=== PATIENT | female | born 1935 | race Caucasian/White ===

== ENCOUNTER 2017-05-12 14:00 | Emergency (ER) | payer MEDICARE ==
[2017-05-12 15:16] LABS: #Lymphocytes 0.9 thou/uL (1.20-3.40); #Monocytes 0.4 thou/uL (0.11-0.59); #Neutrophils 2.9 thou/uL (1.40-6.50); %Basophils 0.4 % (0.0-1.0); %Eosinophils 0.2 % (0.0-10.0); %Lymphocytes 21.1 % (21.0-51.0); %Monocytes 9.2 % (0.0-10.0); %Neutrophils 69.1 % (42.0-75.0); Hemoglobin 12.5 g/dL (12.0-16.0); Mean Corpuscular HGB CONC 34.8 g/dL (32.0-36.0); Mean Corpuscular Hemoglobin 30.3 pg (27.0-31.0); Mean Corpuscular Volume 87.1 fl (81.0-99.0); Mean Platelet Volume 7.9 fL (7.4-10.4); Platelet Count 183 thou/uL (130-400); RBC Distribution Width 11.1 % (11.5-14.5); Red Blood Cell (RBC) Count 4.14 mill/uL (4.20-5.40); White Blood Cell (WBC) Count 4.2 thou/uL (4.8-10.8)
[2017-05-12 15:27] LABS: ALT (SGPT) 14 U/L (8-55); AST (SGOT) 28 U/L (5-34); Albumin 3.5 g/dL (3.4-4.8); Alkaline Phosphatase 42 U/L (40-150); Anion Gap 15 mmol/L (10-20); BUN (Urea Nitrogen) 14 mg/dL (9.8-20.1); Bilirubin, Total 0.5 mg/dL (0.2-1.2); Calc. Creatinine Clearance 0 mL/min (70-130); Calcium 8.4 mg/dL (7.8-10.44); Carbon Dioxide 30 mmol/L (23-31); Chloride 86 mmol/L (98-107); Estimated GFR-MDRD 71; Globulin 2.6 g/dL (2.4-3.5); Glucose 90 mg/dL (83-110); Potassium 3.4 mmol/L (3.5-5.1); Protein, Total 6.1 g/dL (6.0-8.3); Sodium 128 mmol/L (136-145)
[2017-05-12 15:31] LABS: CKMB 2.8 ng/mL (0-6.6); Troponin I 0.014 ng/mL (< 0.028)
--- NOTE | 2017-05-12 15:43 | RAD ---
UPRIGHT PORTABLE CHEST 1 VIEW: Date: 05/12/17 HISTORY: 82-year-old female with chest pain, weakness, body aches. COMPARISON: 05/20/11. FINDINGS: Heart size is within normal limits. Minimal increased linear and interstitial markings which appear s table. No confluent pneumonia, overt edema, or pleural effusion. Atherosclerosis of aorta with ectasi a. IMPRESSION: Minimal stable chronic changes. Atherosclerosis of aorta. POS: C
[2017-05-12 16:05] LABS: Bilirubin Negative (Negative); Blood, Urine Trace (Negative); Clarity Hazy (Clear); Glucose, Urine (Dipstick) Negative (Negative); Leukocyte Small (Negative); Nitrite Negative (Negative); Protein, Urine (Dipstick) Negative (Neg-Trace)
[2017-05-12 16:12] LABS: Bacteria/HPF 2+ HPF (None Seen)
[2017-05-12 16:19] LABS: RBC/HPF 0-3 HPF (0-3)
== END 2017-05-12 17:16 | disposition home or self-care (01) ==
LOC: SCSER 14:00
DX: E87.1 Hypo-osmolality and hyponatremia (principal); E86.0 Dehydration; E03.9 Hypothyroidism, unspecified; I10 Essential (primary) hypertension; F17.210 Nicotine dependence, cigarettes, uncomplicated; Z71.6 Tobacco abuse counseling; Z79.899 Other long term (current) drug therapy
CPT/HCPCS: 71045; 80053; 81003; 81015; 82553; 84484; 85025; 86140; 93005; 99406

== ENCOUNTER 2018-05-08 11:08 | Day surgery (SDC) | payer MEDICARE ==
[~2018-05-08 11:08] MED LIST: PHENYLEPHRINE HCL 2.5% EA EYE SCH
[2018-05-08] MEDS ORDERED: Phenylephrine 2.5% Ophth Soln 5 ML BOT ONE (11:26)
== END 2018-05-08 12:42 | disposition home or self-care (01) ==
LOC: SDC 11:08
PROVIDERS: ATTEND Ophthalmology
PROC: 085K3ZZ Destruction of Left Lens, Percutaneous Approach (ICD-10-PCS; principal; 2018-05-08)
PROC: 085J3ZZ Destruction of Right Lens, Percutaneous Approach (ICD-10-PCS; 2018-05-08)
DX: H26.493 Other secondary cataract, bilateral (principal)

== ENCOUNTER 2018-07-19 14:25 | Inpatient (IN) | payer MEDICARE ==
[2018-07-19] MEDS ORDERED: Ondansetron PF 4 MG/2 ML Vial ONE (14:56)
[2018-07-19 15:08] LABS: #Basophils 0.1 thou/uL (0.0-0.2); #Lymphocytes 1.1 thou/uL (1.20-3.40); #Monocytes 0.7 thou/uL (0.11-0.59); #Neutrophils 11.8 thou/uL (1.40-6.50); %Basophils 0.5 % (0.0-1.0); %Eosinophils 0.1 % (0.0-10.0); %Neutrophils 86.4 % (42.0-75.0); Mean Corpuscular HGB CONC 32.8 g/dL (32.0-36.0); Mean Corpuscular Hemoglobin 30.6 pg (27.0-31.0); Mean Corpuscular Volume 93.2 fL (78.0-98.0); Mean Platelet Volume 9.3 fL (7.4-10.4); Platelet Count 228 thou/uL (130-400); RBC Distribution Width 12.3 % (11.5-14.5); Red Blood Cell (RBC) Count 4.91 mill/uL (4.20-5.40); White Blood Cell (WBC) Count 13.7 thou/uL (4.8-10.8)
[2018-07-19 15:45] LABS: ALT (SGPT) 11 U/L (8-55); AST (SGOT) 17 U/L (5-34); Albumin 3.8 g/dL (3.4-4.8); Alkaline Phosphatase 38 U/L (40-150); Anion Gap 15 mmol/L (10-20); BUN (Urea Nitrogen) 24 mg/dL (9.8-20.1); Bilirubin, Total 1.4 mg/dL (0.2-1.2); Calc. Creatinine Clearance 0 mL/min (70-130); Calcium 9.1 mg/dL (7.8-10.44); Carbon Dioxide 26 mmol/L (23-31); Chloride 98 mmol/L (98-107); Estimated GFR-MDRD 55; Globulin 2.8 g/dL (2.4-3.5); Glucose 108 mg/dL (83-110); Lipase 5 U/L (8-78); Potassium 4.1 mmol/L (3.5-5.1); Protein, Total 6.6 g/dL (6.0-8.3); Sodium 135 mmol/L (136-145)
[2018-07-19] MEDS ORDERED: ePHEDrine 50 MG/ML VIAL ONE (16:31)
[2018-07-19] MEDS ORDERED: Rocuronium Bromide 10 MG/ML (10ML VIAL) ONE (16:31)
[2018-07-19] MEDS ORDERED: PHENYLEPHRINE-NS 100 MCG/ML 10 ML SYRINGE ONE (16:31)
[2018-07-19] MEDS ORDERED: Succinylcholine Chloride 20 MG/ML 10 ml SYRINGE FS ONE (16:31)
[2018-07-19] MEDS ORDERED: Lidocaine 1% PF 5 ML VIAL ONE (16:31)
[2018-07-19] MEDS ORDERED: Glycopyrrolate 0.2 MG/ML 5 ML SYRINGE ONE (16:31)
[2018-07-19] MEDS ORDERED: PROPOFOL 200 MG/20 ML VIAL ONE (16:31)
[2018-07-19] MEDS ORDERED: Lidocaine Viscous Sol 2% 15 ml UD Cup ONE (16:58)
--- NOTE | 2018-07-19 17:03 | CT ---
CT ABDOMEN AND PELVIS WITH IV AND ORAL CONTRAST: HISTORY: Abdominal discomfort, pain, and nausea. Constipation. FINDINGS: The lung bases are clear. The spleen, pancreas, and adrenal glands are normal. There are small cyst s in the kidneys. There are small, low density lesions in the liver, too small to characterize. No calcified gallstones are seen. There is a large amount of free fluid in the abdomen and pelvis, cons istent with ascites. Neurovascular calcifications without evidence of aneurysmal dilatation of the a bdominal aorta. There are degenerative changes in the spine. There is dilatation of the small bowel loops with suggestion of a transition zone in the distal ileum . A dilated loop of small bowel without intraluminal contrast demonstrates marked wall thickening an d mucosal enhancement in the lower abdomen. There is sigmoid diverticulosis. There are degenerative changes in the spine. IMPRESSION: 1. Ascites. 2. Small bowel obstruction. 3. Small bowel wall thickening and mucosal enhancement. The possibility of ischemic bowel cannot be excluded. 4. Left inguinal hernia, containing ascites. Discussed over the telephone with the ER physician, Dr. Issa Bella, at 4:47 p.m. CODE CR POS: CARLA
[2018-07-19] MEDS ORDERED: Piperacillin/Tazobactam 4.5 GM VIAL ONE (17:16)
--- NOTE | 2018-07-19 18:19 | RAD ---
Exam: Chest one view portable: HISTORY: NG tube placement confirmation An NG tube extends into the stomach. Increased linear and interstitial changes are noted bilaterally, stable. IMPRESSION: NG tube in place with the tip in the stomach. Stable chronic interstitial and linear changes. Atheros clerosis of the aorta.
[2018-07-19 19:23] VITALS: BMI 18.3
[2018-07-19] MEDS ORDERED: Bupivacaine HCl 0.5%/Epinephrine 1:200,000/PF 30 ml Vial ONE (19:28)
[2018-07-19] MEDS ORDERED: Meropenem 2 GM in Sodium Chloride 0.9% 100 ML IVPB SCH (19:30)
[2018-07-19] MEDS ORDERED: Fentanyl 100 MCG/2 ML VIAL ONE (19:35)
--- NOTE | 2018-07-19 20:07 | HP ---
HISTORY OF PRESENT ILLNESS: Leonila Hutson is an 83-year-old female, who lives in [place], [place]. She lives alone. She functions independently, drives, ambulates without problems. Her nephew is with her. She is retired. She had a hysterectomy many years ago with unilateral salpingo-oophorectomy. She began having abdominal pain three days ago who developed nausea and vomiting 2 days ago and has been obstipated for 3 days. She took an enema with minimal results. Continues to have pain. She was seen in the emergency room and noted to have normal basic metabolic profile, but a lactate of 2.4. White count 13, hemoglobin 15. CAT scan of the abdomen and pelvis obtained for abdominal pain, nausea, vomiting, obstipation, revealed changes consistent with bowel obstruction with ascites, transition zone in the distal ileum consistent with past hysterectomy. There are some mucosal changes and wall thickening of the small bowel suggestive of ischemia. She is noted to have a left inguinal hernia with ascites and high lactate and her pain and tenderness, would recommend laparoscopy, possible laparotomy. I have explained to the patient and the patient's nephew. They consent and will proceed. ALLERGIES: NONE. SOCIAL HISTORY: Tobacco, one pack per day. Alcohol, occasional beer. MEDICATIONS: Synthroid 50 mcg a day. PAST SURGICAL HISTORY: Hysterectomy, unilateral salpingo-oophorectomy, tonsillectomy, never has had colonoscopy. REVIEW OF SYSTEMS: Ten-point noncontributory nor cardiac symptomatology. No cardiac workup. No cardiac catheterizations in the past. No stress test recalled. PAST MEDICAL HISTORY: Hypothyroidism, otherwise noncontributory. FAMILY HISTORY: Noncontributory. PHYSICAL EXAMINATION: VITAL SIGNS: Temperature 98.8, heart rate 91, respiratory rate 18, blood pressure 146/87, height 5 foot 2, weight 100 pounds, BMI 18. HEAD, EARS, EYES, NOSE AND THROAT: Unremarkable. LUNGS: Clear to auscultation. CARDIAC: Regular rate and rhythm without murmur or gallop. ABDOMEN: Soft, tenderness, diffuse guarding, significantly tympanitic, increased bowel sounds. EXTREMITIES: No ankle edema. LABORATORY DATA: As noted above. ASSESSMENT/PLAN: Small bowel obstruction with significant pain and tenderness and ascites and elevated lactate level, two days of obstipation. We would recommend laparoscopy, possible laparotomy. Risks and benefits of the operation discussed. She consents. We will proceed emergently this evening. Job ID: [id number]
[2018-07-19] MEDS ORDERED: SUGAMMADEX SODIUM 200 MG/2 ML VIAL ONE (20:51)
[2018-07-19] MEDS ORDERED: Morphine 4 MG/ML VIAL SLOW IVP PRN (21:04)
[2018-07-19] MEDS ORDERED: Morphine 2 MG/ML SYRINGE SLOW IVP PRN (21:04)
[2018-07-19] MEDS ORDERED: Ondansetron ODT 4 MG TAB PO PRN ×2 (21:09)
[2018-07-19] MEDS ORDERED: Ondansetron ODT 8 MG TAB PO PRN ×2 (21:09)
[2018-07-19] MEDS ORDERED: Ondansetron HCl/PF 4 MG/2 ML Vial IVP PRN (21:15)
[2018-07-19] MEDS ORDERED: Promethazine HCl 25 MG/ML VIAL IM PRN (21:15)
[2018-07-19] MEDS ORDERED: Promethazine HCl 25 MG/ML VIAL SLOW IVP PRN (21:15)
[2018-07-19] MEDS ORDERED: Scopolamine 1.5 mg/72 hour Patch TD SCH (22:00)
[2018-07-19] MEDS: Lactated Ringer's 1,000 ML IV SCH (22:41)
[2018-07-20] MEDS: Ketorolac Tromethamine 30 MG/ML VIAL IVP SCH ×4 (00:10→18:31)
[2018-07-20] MEDS: Acetaminophen 1,000 MG in Premix Bag 1 BAG IVPB SCH ×2 (00:11→05:57)
--- NOTE | 2018-07-20 03:58 | OP ---
DATE OF PROCEDURE: 07/19/2018 PREOPERATIVE DIAGNOSIS: Small-bowel obstruction, suspect ischemic bowel. POSTOPERATIVE DIAGNOSIS: Small-bowel obstruction, suspect ischemic bowel due to adhesions from hysterectomy. PROCEDURE PERFORMED: Laparoscopic adhesiolysis. ANESTHESIA: General, local 0.5% Marcaine with epinephrine 30 mL. DESCRIPTION OF PROCEDURE: The patient was taken to the operating room. Under general anesthesia, Waggoner catheter placed and left at the end of the procedure overnight. The patient's abdomen prepared with ChloraPrep and draped in routine fashion. Left lateral subcostal incision made, pneumoperitoneum to 15 mmHg obtained with a Veress needle, replaced with a 5-port video laparoscope inserted. Left lateral mid abdominal incision made and a 5-port placed and the left lower quadrant lateral incision made and another 5-port placed, all under laparoscopic visualization. There was no omental adhesions to the anterior abdominal wall inferiorly, taken down with the LigaSure. This omentum was reflected cephalad. There was bloody tinged ascites and abdominal cavity evacuated with suction. There was an adhesive band between the omentum bridging to the mesentery obstructing the segment of ileum. This was carefully evaluated laparoscopically, identified, divided with LigaSure, releasing the obstruction. There was a segment of ileum about 10 inches that was hyperemic but not gangrenous. Once the adhesion was released, this began to pink up and then appeared to be improved. The mesentery was slightly hemorrhagic, but the bowel was viable and did not require resection. Pneumoperitoneum irrigant evacuated and all this was removed, and all skin incisions were approximated with interrupted subdermal 4-0 Monocryl and [place] glue applied. Job ID: [id number]
[2018-07-20 05:05] LABS: #Lymphocytes 1.6 thou/uL (1.20-3.40); #Monocytes 0.8 thou/uL (0.11-0.59); #Neutrophils 9.9 thou/uL (1.40-6.50); %Eosinophils 0.4 % (0.0-10.0); %Lymphocytes 12.8 % (21.0-51.0); %Monocytes 6.2 % (0.0-10.0); %Neutrophils 80.6 % (42.0-75.0); Hemoglobin 12.1 g/dL (12.0-16.0); Mean Corpuscular HGB CONC 33.5 g/dL (32.0-36.0); Mean Corpuscular Hemoglobin 32.4 pg (27.0-31.0); Mean Corpuscular Volume 96.7 fL (78.0-98.0); Mean Platelet Volume 8.6 fL (7.4-10.4); Platelet Count 234 thou/uL (130-400); Red Blood Cell (RBC) Count 3.75 mill/uL (4.20-5.40); White Blood Cell (WBC) Count 12.3 thou/uL (4.8-10.8)
[2018-07-20 05:08] LABS: Anion Gap 11 mmol/L (10-20); BUN (Urea Nitrogen) 19 mg/dL (9.8-20.1); Calc. Creatinine Clearance 36 mL/min (70-130); Carbon Dioxide 25 mmol/L (23-31); Chloride 100 mmol/L (98-107); Estimated GFR-MDRD 65; Potassium 4.3 mmol/L (3.5-5.1); Sodium 132 mmol/L (136-145)
[2018-07-20 05:09] LABS: Calcium 8.3 mg/dL (7.8-10.44); Glucose 78 mg/dL (83-110)
[2018-07-20] MEDS: Lactated Ringer's 1,000 ML IV SCH ×3 (05:57→13:37)
[2018-07-20] MEDS: Pantoprazole 40 MG VIAL IVP SCH (08:27)
[2018-07-20] MEDS ORDERED: Prevnar 13-Val Conj/PF 0.5 ML SYRINGE IM ONE (09:00)
[2018-07-20] MEDS ORDERED: traMADol HCl 50 MG TAB PO PRN (09:06)
--- NOTE | 2018-07-20 09:22 | PRG ---
DATE OF SERVICE: 07/20/2018 SUBJECTIVE: Leonila Hutson is doing well status post laparoscopic adhesiolysis yesterday. OBJECTIVE: VITAL SIGNS: Temperature 98.3, pulse 75, blood pressure 134/84. GENERAL: Her abdominal pain is resolved. NG tube output is very little and is removed. Waggoner was removed this morning. LUNGS: Clear to auscultation. CARDIAC: Regular rate and rhythm without murmur or gallop. ABDOMEN: Soft, nontender. LABORATORY DATA: White count 12 and hemoglobin 12. Basic metabolic profile normal. Sodium 132. ASSESSMENT AND PLAN: Doing well postop lysis of adhesions. Plan to remove her NG tube, Waggoner, and advance her diet. She could probably be discharged home in the next 24 hours, maybe later today pending her clinical course. Job ID: [id number]
[2018-07-20] MEDS ORDERED: Acetaminophen 500 MG TAB PO PRN (12:00)
[2018-07-20] MEDS ORDERED: Ibuprofen 600 MG TAB PO PRN (15:51)
[2018-07-20] MEDS ORDERED: Enoxaparin Sodium 40 MG/0.4 ML SYRINGE SC SCH (21:00)
[2018-07-21] MEDS: Lactated Ringer's 1,000 ML IV SCH ×3 (02:20→08:15)
[2018-07-21] MEDS: Ketorolac Tromethamine 30 MG/ML VIAL IVP SCH ×3 (02:21→11:01)
[2018-07-21] MEDS ORDERED: Levothyroxine Sodium 50 MCG TAB PO SCH (06:00)
[2018-07-21] MEDS: Pantoprazole 40 MG VIAL IVP SCH (08:09)
[2018-07-21] MEDS ORDERED: Polyethylene Glycol 3350 17 GM Packet PO SCH (09:00)
[2018-07-21 12:16] VITALS: BP 165/83; TEMP 98.2
[2018-07-25] MEDS ORDERED: Ibuprofen 600 MG TAB PO PRN (06:00)
== END 2018-07-21 13:52 | disposition home or self-care (01) | DRG 336 ==
LOC: SCSER 14:25 → SJJU 18:24
PROVIDERS: ADMIT Specialist; ATTEND Specialist
PROC: 0DNW4ZZ Release Peritoneum, Percutaneous Endoscopic Approach (ICD-10-PCS; principal; 2018-07-19)
DX: K56.50 Intestinal adhesions [bands], unspecified as to partial versus complete obstruction (principal); R18.8 Other ascites; K40.90 Unilateral inguinal hernia, without obstruction or gangrene, not specified as recurrent; F17.210 Nicotine dependence, cigarettes, uncomplicated; E03.9 Hypothyroidism, unspecified
CPT/HCPCS: 36415; 71045; 74177; 80048; 80053; 83605; 83690; 85025; 93005; 93010; C9113; J0131; J0670; J1650; J1885; J2001; J2185; J2270; J2405; J2543; J2704; J3010; J3490

== ENCOUNTER 2018-07-22 19:58 | Observation (INO) | payer MEDICARE ==
[~2018-07-22 19:58] MED LIST changes: +ISOVUE-370 76%-LOCM 1 ML ONE; +Iopamidol 370 76% 50 ML VIAL FS ONE; -PHENYLEPHRINE HCL 2.5% EA EYE SCH
[2018-07-22 20:51] LABS: #Eosinphils 0.1 thou/uL (0.0-0.7); #Lymphocytes 1.5 thou/uL (1.20-3.40); #Monocytes 0.4 thou/uL (0.11-0.59); #Neutrophils 4.8 thou/uL (1.40-6.50); %Basophils 0.6 % (0.0-1.0); %Eosinophils 1.2 % (0.0-10.0); %Lymphocytes 21.9 % (21.0-51.0); %Monocytes 5.8 % (0.0-10.0); %Neutrophils 70.5 % (42.0-75.0); Hemoglobin 11.7 g/dL (12.0-16.0); Mean Corpuscular HGB CONC 33.4 g/dL (32.0-36.0); Mean Corpuscular Hemoglobin 32.2 pg (27.0-31.0); Mean Corpuscular Volume 96.5 fL (78.0-98.0); Mean Platelet Volume 7.8 fL (7.4-10.4); Platelet Count 251 thou/uL (130-400); RBC Distribution Width 11.6 % (11.5-14.5); Red Blood Cell (RBC) Count 3.65 mill/uL (4.20-5.40); White Blood Cell (WBC) Count 6.8 thou/uL (4.8-10.8)
[2018-07-22 21:12] LABS: ALT (SGPT) 18 U/L (8-55); AST (SGOT) 34 U/L (5-34); Albumin 3.6 g/dL (3.4-4.8); Alkaline Phosphatase 45 U/L (40-150); Anion Gap 11 mmol/L (10-20); BUN (Urea Nitrogen) 11 mg/dL (9.8-20.1); Bilirubin, Total 0.8 mg/dL (0.2-1.2); Calc. Creatinine Clearance 0 mL/min (70-130); Carbon Dioxide 31 mmol/L (23-31); Chloride 96 mmol/L (98-107); Estimated GFR-MDRD 59; Globulin 2.6 g/dL (2.4-3.5); Glucose 92 mg/dL (83-110); Potassium 3.7 mmol/L (3.5-5.1); Protein, Total 6.2 g/dL (6.0-8.3); Sodium 134 mmol/L (136-145)
[2018-07-22 21:31] LABS: Bilirubin Negative (Negative); Blood, Urine Trace (Negative); Clarity CLEAR (Clear); Glucose, Urine (Dipstick) Negative (Negative); Leukocyte Trace (Negative); Nitrite Negative (Negative); Protein, Urine (Dipstick) Negative (Neg-Trace); Specific Gravity, Urine 1.005 (1.002-1.036); Urobilinogen 0.2 mg/dL (0.2-1.0)
[2018-07-22 21:33] LABS: Bacteria/HPF None Seen HPF (None Seen); Hyaline Casts/LPF 0-3 HYALINE CAST LPF (0-3 Hyaline); RBC/HPF 0-3 HPF (0-3); Squamous Epithelial None Seen HPF (0-3); WBC/HPF 0-3 HPF (0-3)
--- NOTE | 2018-07-22 23:39 | CT ---
CONTRAST ENHANCED CT IMAGES OF ABDOMEN AND PELVIS: 07/22/18 HISTORY: Abdominal pain. Contrast enhanced CT images of the abdomen and pelvis is obtained. The lung bases demonstrate a 6 mm right lung base nodular density seen on patient's recent CT from 07/19/18. No other lung base abnormality seen. Multiple collections of free air is seen in the peritoneal cavity. This may represent recurrent perfo ration or residual postoperative gas. The liver and spleen demonstrate no significant interval changes. The gallbladder is unremarkable. Th e pancreas is unremarkable. Adrenal glands are unremarkable. The kidneys are within normal limits. Some moderately dilated loops of small bowel seen. This is slightly less pronounced than on the previ ous exam but continues to demonstrate definite small bowel distention, possibly ileus or obstruction. Radiopaque contrast is seen in the small bowel. Some of the previously ingested small bowel contrast has now moved on into the colon. No definite evidence of an abscess seen. IMPRESSION: 1. Free intraperitoneal air. Significance of this is unknown. This may represent postoperative change s or may represent perforation since the patient's surgery. 2. Dilated loops of small bowel, possibly representing postoperative ileus or obstruction. 3. Some air seen in the urinary bladder. This may be due to recent catheterization or secondary air i n the urinary bladder or may represent gas forming organism in the bladder lumen. Correlate with hist ory. POS: CARLA
--- NOTE | 2018-07-22 23:55 | HP ---
ATTENDING SURGEON: Dr. Payan. HISTORY OF PRESENT ILLNESS: The patient is an 83-year-old woman who was discharged yesterday from our facility, status post a small bowel obstruction, where she underwent laparoscopic adhesiolysis. The patient is postop day 3 status post that procedure, which she had tolerated well and she was discharged yesterday. She has been tolerating a diet, but this morning, according to family members, she started having some pain and bloating. States that she has not had any fevers or chills. She has been passing gas and had bowel movements. The family was concerned about the bloating, so they brought her to the emergency department where she underwent evaluation and examination, and CT exam with contrast showed some free fluid and free air, but this was minimal and expected in light of her recent surgery. The patient's vital signs were stable and her labs were also stable. Dr. Payan examined the patient in the emergency department and agreed to admit the patient for observation and serial exams. ALLERGIES: NONE. CURRENT MEDICATIONS: Levothyroxine. PAST MEDICAL HISTORY: Hypothyroidism and hypertension. PAST SURGICAL HISTORY: Hysterectomy and laparoscopic adhesiolysis. SOCIAL HISTORY: The patient lives with family. She drinks alcohol approximately once a month. Denies drug use and smokes approximately one pack of cigarettes per day. REVIEW OF SYSTEMS: A 10-point review of systems is negative except as otherwise stated. PHYSICAL EXAMINATION: VITAL SIGNS: Blood pressure 159/82, heart rate 85, respirations 18, oxygen saturation 99% on room air, and temperature is 97.9. GENERAL: The patient is resting comfortably in bed. She is awake, alert, and oriented x3. Conversant appropriate. She appears in no apparent distress. HEENT. Head is normocephalic and atraumatic. Eyes, extraocular motion intact. PERRLA bilaterally. Ears are atraumatic without discharge. Nose is atraumatic without discharge. Oropharynx is clear. NECK: Nontender. Trachea is midline. No JVD. No lymphadenopathy. LUNGS: Clear to auscultation with good inspiratory and expiratory effort. HEART: Regular rate and rhythm. ABDOMEN: Soft, flat, nontender. No peritoneal signs. Her postoperative laparoscopic sites are clean, dry, and intact with no signs of infection. EXTREMITIES: Neurovascularly intact x4. LABORATORY FINDINGS: White blood cell count is 6.8, hemoglobin 11.7, hematocrit 35.2, platelets 251. Sodium 134, potassium 3.7, chloride 96, CO2 of 31, BUN 11, creatinine 0.91, glucose 92. LFTs are unremarkable. Urinalysis is unremarkable. CT of the abdomen and pelvis with contrast as stated earlier, showed some small amount of free fluid and free air. This is likely related to her recent surgery. No evidence of overt perforation or abscess formation. ASSESSMENT: 1. Status post lysis of adhesions. 2. Postoperative abdominal pain. PLAN: Plan will be to admit the patient under observation for serial exams. Regular diet. Encourage ambulation and re-evaluation in the morning. The evaluation, examination laboratory and radiographic findings were reviewed and discussed with Dr. Payan in the emergency department, who examined the patient and answered the patient and the family's questions at that time. Job ID: [id number]
[2018-07-23] MEDS ORDERED: traMADol HCl 50 MG TAB PO PRN ×2 (00:37)
[2018-07-23] MEDS ORDERED: Ondansetron PF 4 MG/2 ML Vial IVP PRN (00:37)
[2018-07-23] MEDS ORDERED: hydrALAZINE 20 MG/ML VIAL SLOW IVP PRN (00:37)
[2018-07-23] MEDS ORDERED: Ondansetron ODT 4 MG TAB PO PRN (00:37)
[2018-07-23] MEDS ORDERED: Dextrose 5% in Water 1,000 ML IV PRN (00:37)
[2018-07-23] MEDS ORDERED: Dextrose 50% Abboject 50 ML SYRINGE SLOW IVP PRN (00:37)
[2018-07-23] MEDS ORDERED: Acetaminophen 500 MG TAB PO PRN (00:37)
[2018-07-23 00:43] VITALS: BMI 19.8
[2018-07-23] MEDS ORDERED: Prevnar 13-Val Conj/PF 0.5 ML SYRINGE IM ONE (09:00)
[2018-07-23] MEDS ORDERED: Famotidine 20 MG TAB PO SCH (09:00)
[2018-07-23 11:27] VITALS: BP 147/84; TEMP 98.2
--- NOTE | 2018-07-23 20:28 | DIS ---
DATE OF ADMISSION: 07/23/2018 DATE OF DISCHARGE: 07/23/2018 DISCHARGING PHYSICIAN: Dr. Payan. PROCEDURES: On 07/22/2018, abdominal and pelvis CT, impression; free intraperitoneal air, significance of unknown; dilated loops of bowel, possibly representing postoperative ileus or obstruction. PRIMARY DIAGNOSIS: Status post lysis of adhesions. SECONDARY DIAGNOSES: Hypothyroidism and hypertension. MEDICATIONS: Discharge medications: 1. Acetaminophen 1000 mg p.o. q.6 hours for pain. 2. Levothyroxine 50 mcg one tablet p.o. daily. Discontinue medications; none. HISTORY OF PRESENT ILLNESS: This is an 83-year-old female, who was discharged 2 days ago from our facility, status post small bowel obstruction. The patient underwent laparoscopic adhesiolysis. The patient is postop day #3 from that procedure, in which she had tolerated well when she was discharged 2 days ago. The patient had been tolerating a diet, but was brought to the ER by family members, who reported the patient had some pain and bloating. There were no fevers or chills reported. The patient has been passing gas and having bowel movements. Again, family was concerned about the bloating. The patient was evaluated in the emergency room and a CT exam with contrast showed some free fluid and free air, but was minimal and expected in the light of her recent surgery. The patient had no overnight events during her hospital stay. The patient continues to tolerate a diet and have good bowel function. The patient was examined with Dr. Payan on the day of discharge. The patient's vital signs were stable. The patient's physical exam was unremarkable including cardiopulmonary and GI exam. The patient had no complaint nor did the family at the present time. The patient was deemed stable for discharge home. DISPOSITION: Stable. DISCHARGE INSTRUCTIONS: Location: Home. Diet: Regular diet. Activity: As tolerated. FOLLOWUP: 1. Follow up with Dr. Leyva as directed, call for an appointment. 2. Follow up with primary care physician, Dr. Deng Patel, as scheduled. Job ID: [id number]
[2018-07-24] MEDS ORDERED: Levothyroxine Sodium 50 MCG TAB PO SCH ×2 (09:00)
== END 2018-07-23 11:20 | disposition home or self-care (01) ==
LOC: ERS 19:58 → SURG A 07-23 00:26
PROVIDERS: ADMIT Surgery; ATTEND Surgery
DX: G89.18 Other acute postprocedural pain (principal); I10 Essential (primary) hypertension; E03.9 Hypothyroidism, unspecified; F17.210 Nicotine dependence, cigarettes, uncomplicated; Z79.899 Other long term (current) drug therapy; Z98.890 Other specified postprocedural states
CPT/HCPCS: 74177; 80053; 85025; 97139; 99285; G0378; 36415; 81003; 81015; Q9966; Q9967

== ENCOUNTER 2019-05-12 20:56 | Inpatient (IN) | payer MEDICARE ==
--- NOTE | 2019-05-12 21:20 | CT ---
CT BRAIN WITHOUT CONTRAST: HISTORY: Level 2 stroke. Slurred speech, expressive aphasia FINDINGS: No evidence of acute infarct, hemorrhage, midline shift or abnormal extra-axial fluid collections is seen. There are changes of chronic small vessel ischemic disease in the periventricular white matter. The ventricular size is appropriate and the basilar cisterns are patent. The bony calvarium i s intact. The visualized paranasal sinuses and mastoid air cells are well aerated. IMPRESSION: No CT evidence of acute intracranial process. Discussed over the telephone with ER physician Dr. Nirmal Tarango at 9:15 PM
[2019-05-12 21:29] LABS: #Lymphocytes 1.3 thou/uL (1.20-3.40); #Monocytes 0.4 thou/uL (0.11-0.59); #Neutrophils 2.6 thou/uL (1.40-6.50); %Basophils 0.9 % (0.0-1.0); %Eosinophils 1.1 % (0.0-10.0); %Monocytes 9.2 % (0.0-10.0); %Neutrophils 58.8 % (42.0-75.0); Hemoglobin 12.7 g/dL (12.0-16.0); Mean Corpuscular HGB CONC 33.1 g/dL (32.0-36.0); Mean Corpuscular Hemoglobin 31.4 pg (27.0-31.0); Mean Corpuscular Volume 94.7 fL (78.0-98.0); Mean Platelet Volume 8.4 fL (7.4-10.4); Platelet Count 293 thou/uL (130-400); RBC Distribution Width 11.8 % (11.5-14.5); Red Blood Cell (RBC) Count 4.04 mill/uL (4.20-5.40); White Blood Cell (WBC) Count 4.5 thou/uL (4.8-10.8)
[2019-05-12 21:34] LABS: INR-International Normal Ratio 0.9; PTT 38.6 SEC (22.9-36.1); Prothrombin Time 12.5 SEC (12.0-14.7)
[2019-05-12] MEDS ORDERED: Aspirin Chewable 81 MG TAB ONE (21:44)
[2019-05-12 21:49] LABS: ALT (SGPT) 10 U/L (8-55); AST (SGOT) 25 U/L (5-34); Albumin 4.2 g/dL (3.4-4.8); Alkaline Phosphatase 52 U/L (40-110); Anion Gap 13 mmol/L (10-20); BUN (Urea Nitrogen) 18 mg/dL (9.8-20.1); Bilirubin, Total 0.5 mg/dL (0.2-1.2); CK (CPK) 138 U/L (29-168); Calc. Creatinine Clearance 0 mL/min (70-130); Calcium 9.5 mg/dL (7.8-10.44); Carbon Dioxide 27 mmol/L (23-31); Chloride 100 mmol/L (98-107); Estimated GFR-MDRD 51; Globulin 3.5 g/dL (2.4-3.5); Glucose 98 mg/dL (83-110); Potassium 4.4 mmol/L (3.5-5.1); Protein, Total 7.7 g/dL (6.0-8.3); Sodium 136 mmol/L (136-145)
[2019-05-13] MEDS ORDERED: Ondansetron PF 4 MG/2 ML Vial IVP PRN (00:08)
[2019-05-13] MEDS ORDERED: Ondansetron ODT 4 MG TAB SL PRN (00:08)
[2019-05-13] MEDS ORDERED: Acetaminophen 325 MG TAB PO PRN (00:08)
[2019-05-13 01:40] VITALS: BMI 18.4
--- NOTE | 2019-05-13 03:08 | HP ---
TIME OF ASSESSMENT: 003. CHIEF COMPLAINT: Slurred speech. HISTORY OF PRESENT ILLNESS: Ms. Leonila Hutson is a pleasant 84-year-old woman, who lives alone and is fully independent at baseline, presenting with complaints of slurred speech since she woke up this morning. She states it continued to persist throughout the day. She apparently spoke to family around 6:00 p.m. and was noted to be somewhat altered with slurred speech. The patient was prompted to come into the emergency department. On arrival in the ED, she was noted to have an elevated blood pressure of 178/93. The patient had an EKG done showing normal sinus rhythm with a heart rate of 83. She was given 324 mg of aspirin. LABORATORY DATA: Laboratory studies were done showing a white count of 4.5, hemoglobin 12.7, hematocrit 38.2, platelets 293. Sodium 136, potassium 4.4, BUN 18, creatinine 1.03, GFR 51, calcium 9.5, total bilirubin 0.5, total protein 7.7, albumin 4.2, AST 25, ALT 10, alkaline phosphatase 52. The patient had a CT of the brain that showed no CT evidence of acute intracranial process. PAST MEDICAL HISTORY: 1. Hypothyroidism. 2. Hypertension. PAST SURGICAL HISTORY: 1. Hysterectomy. 2. Bowel surgery due to twisting of the bowel. SOCIAL HISTORY: The patient lives alone and is fully independent. She does report a history of smoking. She smokes a pack per day. ALLERGIES: NO KNOWN DRUG ALLERGIES. CURRENT MEDICATIONS: 1. Levothyroxine. 2. Acetaminophen. PHYSICAL EXAMINATION: GENERAL: The patient appears thin, frail, is in no acute distress, resting comfortably in bed. VITAL SIGNS: Temperature 97.5, pulse 76, respirations 18, O2 saturation 95% on room air, blood pressure 157/82. HEENT: Normocephalic and atraumatic. Pupils are equal, round, and reactive to light. Sclerae icterus. Oropharynx is clear. NECK: Supple without lymphadenopathy. LUNGS: Clear to auscultation bilaterally without any wheezes, rales, or rhonchi. CARDIAC: Regular rate and rhythm without audible murmurs, rubs, or gallops. ABDOMEN: Soft, nontender, nondistended. Normoactive bowel sounds present. No guarding or rigidity. No renal angle tenderness. EXTREMITIES: No lower leg swelling or edema. NEUROLOGIC: The patient is alert and oriented x3. Facial sensation and facial movements normal. She does have some slight tongue deviation towards the right. The patient states it is due to having a short tongue. Speech is slightly slurred. States it is much improved from this morning. Extremities with 4/4 power and sensation intact. Reflexes intact. IMPRESSION AND PLAN: Ms. Hutson is a very pleasant 84-year-old woman, who is being referred for the following. 1. Transient ischemic attack/cerebrovascular accident rule out. The patient with slurred speech since this morning that has slowly improved and no other neuro deficits according to the patient, though she reportedly was somewhat altered when speaking to her family this evening. CT of the brain unremarkable. CT of the brain normal. Consultation placed to Neurology. Echo requested as well as MRI of the brain. 2. Hypothyroidism. We will check a TSH. Resume home medication once verified. 3. Hypertension. Monitor blood pressure. Resume home medication once verified. 4. Chronic obstructive pulmonary disease. No evidence of exacerbation at present. Sats 95% on room air. DuoNeb p.r.n. ordered. 5. Gastrointestinal prophylaxis with famotidine. 6. Code status full. Surrogate decision maker is her nephew, Mamadou Rodriguez. Case was discussed with attending, who agrees with the plan of care. Job ID: [id number]
[2019-05-13] MEDS: Levothyroxine Sodium 50 MCG TAB PO SCH (05:23)
[2019-05-13 05:52] LABS: Cardiac Risk 2.1 (Less than 4.5)
[2019-05-13 07:30] LABS: Bacteria/HPF None Seen HPF (None Seen); Bilirubin Negative (Negative); Blood, Urine Negative (Negative); Clarity Clear (Clear); Glucose, Urine (Dipstick) Normal (Negative); Leukocyte 25 Leu/uL (Negative); Nitrite Negative (Negative); Protein, Urine (Dipstick) Negative (Neg-Trace); RBC/HPF 0-3 HPF (0-3); Squamous Epithelial 0-3 HPF (0-3); Urobilinogen Normal mg/dL (Less than 2); WBC/HPF 0-3 HPF (0-3)
[2019-05-13 07:37] LABS: Urine Culture Reflex No No
[2019-05-13] MEDS ORDERED: Famotidine/PF 20 mg/2ml Vial SLOW IVP SCH (09:00)
[2019-05-13] MEDS: Aspirin 81 mg Enteric Coated Tablet PO SCH (09:30)
--- NOTE | 2019-05-13 11:26 | MRI ---
MRI BRAIN WITHOUT CONTRAST: HISTORY: Slurred speech which has largely resolved. COMPARISON: CT study done yesterday. FINDINGS: There is generalized ventricular and sulcal prominence. There is prominent T2 and FLAIR hyperintensit y within the white matter, consistent with some chronic white matter change. There is a punctate focu s of decreased signal change within the left occipital lobe on the gradient sequence. This probably r epresents a chronic area of hemosiderin deposition. On the diffusion weighted sequence there is a more linear focus of restricted diffusion in the left f rontal white matter, in the left MCA distribution. No evidence of hemorrhage in this area. There is n o extraaxial fluid collection. The mastoid air cells and visualized sinuses are clear. IMPRESSION: 1. Fairly small focus of restricted diffusion seen in the left frontal white matter, consistent with a small infarct in the left middle cerebral artery distribution. 2. Atrophy with pronounced chronic white matter change. POS: CARLA
--- NOTE | 2019-05-13 14:39 | CON ---
DATE OF CONSULTATION: 05/13/2019 CONSULTING PHYSICIAN: Hospitalist Service. IMPRESSION: Probable small vessel stroke with slight right facial droop and transient dysarthria. PLAN: Continue current treatment that you have undertaken and workup. HISTORY OF PRESENT ILLNESS: Ms. Hutson is an 84-year-old white female with no significant past history other than hypothyroidism. She is a regular smoker as well. She noted yesterday that her speech was a bit slurred. She did not note any lateralized weakness or numbness. Her family reports her speech is better today. She has never had anything like this before. Initial CT scan of the brain was unremarkable. Her lab work was all unremarkable as well. PAST HISTORY: Hypothyroidism. FAMILY HISTORY: Noncontributory. ALLERGIES: NONE. SOCIAL HISTORY: Positive for tobacco and rare alcohol use. MEDICATIONS: Thyroid replacement. REVIEW OF SYSTEMS: Ten-system review of systems is otherwise negative. PHYSICAL EXAMINATION: GENERAL: She is a well-nourished elderly lady, in no distress. VITAL SIGNS: Blood pressure 144/73, pulse 73, respirations 17, and temperature 97.5. HEENT: Pupils are equal and reactive. Conjunctivae are clear. Oropharynx clear. NECK: Supple. No lymphadenopathy. EXTREMITIES: No cyanosis, clubbing, or edema. NEUROLOGIC: She was alert and appropriate. Her speech is fluent and clear. Cranial nerve exam showed a subtle right facial droop. Motor exam showed equal golf cart maker strength. She had no tremor or dysmetria. Sensations intact to touch. She can walk independently. No abnormal movements were seen. LABORATORY STUDIES: Unremarkable CBC, coagulation panel, chemistry panel, and urine. Her cholesterol ratio was 2.1. Echocardiogram has been completed. Carotid ultrasound is pending. SUMMARY: This is an 84-year-old woman with some subtle neurologic symptoms and mild flattening of the right facial fold suggesting a small stroke. I agree with your current workup and treatment. Job ID: [id number]
--- NOTE | 2019-05-13 18:59 | PDOC.BPN ---
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 This is a non- billable rounding visit. MRI has demonstrated a left MCA stroke. She continues to have slurred speech deficit. We are pending an echocardiogram and a US carotid. We will continue to coordinate with neurology and plan for PT/OT/ speech evaluation and CM discharge planning. Continue aspirin and statin at this time.
--- NOTE | 2019-05-13 20:54 | ULT ---
BILATERAL CAROTID DUPLEX ULTRASOUND: HISTORY: Level 2 stroke. Slurred speech, expressive aphasia TECHNIQUE: Grayscale, color-flow and spectral Doppler ultrasound imaging of the extracranial carotid artery syst ems was performed bilaterally. FINDINGS: There is plaque formation on either side. The peak systolic velocity in the right ICA measures 64 cm/s with an end-diastolic velocity of 14 cm/ s and a systolic ratio of 0.61. The peak systolic velocity in the left ICA measures 93 cm/s with an end-diastolic velocity of 17 cm/s and a systolic ratio of 1.13. Flow in both vertebral arteries remains antegrade. IMPRESSION: No evidence of hemodynamically significant stenosis.
[2019-05-13] MEDS ORDERED: Atorvastatin Calcium 40 MG TAB PO SCH (21:00)
[2019-05-14 04:28] VITALS: TEMP 97.9
[2019-05-14] MEDS: Levothyroxine Sodium 50 MCG TAB PO SCH (05:20)
--- NOTE | 2019-05-14 07:23 | PDOC.HOSPP ---
- Subjective Encounter Date: 05/14/19 Encounter Time: 08:00 Subjective: Patient with some residual trouble getting words out, worse in AM, better if talks slowly. Has lots of assistance from her lutheran. - Objective Vital Signs & Weight: Vital Signs (12 hours) Temp Pulse Resp BP Pulse Ox 05/14/19 04:00 97.9 F 74 16 110/59 L 97 05/14/19 00:00 97.6 F 85 16 108/58 L 97 05/13/19 20:00 97.8 F 77 16 134/69 97 Weight Weight 97 lb 8 oz I&O: 05/13/19 05/14/19 05/15/19 06:59 06:59 06:59 Intake Total 410 510 Output Total 2100 Balance 410 -1590 Result Diagrams: 05/12/19 21:14 05/12/19 21:14 Hospitalist ROS - Review of Systems Constitutional: denies: fever, chills Respiratory: denies: cough, shortness of breath Cardiovascular: denies: chest pain, palpitations Gastrointestinal: denies: nausea, vomiting Neurological: reports: change in speech - Medication Medications: Active Medications Generic Name Dose Route Start Last Admin Trade Name Freq PRN Reason Stop Dose Admin Albuterol/Ipratropium 3 ml 05/13/19 07:00 05/13/19 18:55 Duoneb NEB Not Given [id number] SULMA Aspirin 81 mg 05/13/19 09:00 05/13/19 09:30 Ecotrin PO 81 mg DAILY SULMA Administration Atorvastatin Calcium 40 mg 05/13/19 21:00 05/13/19 19:57 Lipitor PO 40 mg HS SULMA Administration Levothyroxine Sodium 50 mcg 05/13/19 06:00 05/14/19 05:20 Synthroid PO 50 mcg 0600 SULMA Administration Sodium Chloride 10 ml 05/13/19 09:00 05/13/19 19:58 Flush - Normal Saline IVF 10 ml Q12HR SULMA Administration - Exam General Appearance: NAD, awake alert ENT: moist mucosa Heart: RRR, no murmur, no gallops, no rubs Respiratory: CTAB, no wheezes, no rales, no ronchi Gastrointestinal: soft, non-tender, non-distended, normal bowel sounds Neurological: no new deficit, speech deficit. negative: facial droop, hemiplegia Musculoskeletal: normal tone, normal strength Psychiatric: normal affect, normal behavior, A&O x 3 Hosp A/P (1) Acute ischemic left MCA stroke Code(s): I63.512 - CEREB INFRC D/T UNSP OCCLS OR STENOS OF LEFT MID CEREB ART Status: Acute (2) Hypertension Code(s): I10 - ESSENTIAL (PRIMARY) HYPERTENSION Status: Chronic (3) Hypothyroidism Code(s): E03.9 - HYPOTHYROIDISM, UNSPECIFIED Status: Chronic (4) COPD (chronic obstructive pulmonary disease) Status: Chronic - Plan MRI with left MCA stroke- small On ASA and Atorvastatin Carotid dopplers without significant stenosis PT/ST evals ok, can go home ECHO negative Will d/c home.
[2019-05-14] MEDS: Aspirin 81 mg Enteric Coated Tablet PO SCH (08:10)
[2019-05-14] MEDS ORDERED: Famotidine/PF 20 mg/2ml Vial SLOW IVP SCH (09:00)
[2019-05-14 11:47] VITALS: BP 119/61
--- NOTE | 2019-05-14 13:57 | DIS ---
DATE OF ADMISSION: 05/13/2019 DATE OF DISCHARGE: 05/14/2019 PRIMARY CARE PHYSICIAN: Deng Patel MD REASON FOR ADMISSION: Slurred speech. DIAGNOSES AT DISCHARGE: 1. 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 2. Hypertension. 3. Hypothyroidism. 4. Chronic obstructive pulmonary disease. PROCEDURES PERFORMED: 1. CT of the brain without contrast showing no evidence of acute intracranial process. 2. MRI of the brain without contrast showing a fairly small focus of restricted diffusion in the left frontal white matter consistent with small left middle cerebral artery stroke. There is also a lot of atrophy with pronounced chronic white matter change. 3. Ultrasound of the bilateral carotids showing no evidence for hemodynamically significant stenosis. 4. Echocardiogram showing an ejection fraction of 55% to 60%; mild left ventricular hypertrophy; some sclerosis of the aortic valve, does not well seen; and there is no evidence of stenosis. CONSULTATIONS: Neurology, Dr. Figueroa. SUMMARY OF HOSPITAL COURSE: This is an 84-year-old white female, who lives alone, fully independent at baseline, though she does get a lot of assistance from her mu-ism, presented with complaints of slurred speech when she woke up in the morning. She was seen in the emergency room and was noted to be hypertensive and was given aspirin. The patient was admitted to the hospital. She was observed in the hospital. She had CT and MRI done as above, and Dr. Figueroa consulted. The patient was diagnosed with a small stroke. Her speech was getting better, but she still had to make sure to talk slowly, so she could pronounce things correctly. At the time of discharge, she was ambulating well with PT and was cleared for discharge from their standpoint. She was started on aspirin and atorvastatin for future stroke prevention, though her cholesterol profile was actually quite good. DISCHARGE MANAGEMENT: Discharged home with home health for speech therapy. ACTIVITY: As tolerated. DIET: Healthy-heart low-sodium diet. FOLLOWUP: Follow up with Dr. Ptael in 1 week. DISCHARGE MEDICATIONS: 1. Aspirin 81 mg daily, 30 tablets dispensed. 2. Atorvastatin 40 mg at night, 30 tablets dispensed. 3. Levothyroxine 50 mcg daily. 4. Acetaminophen as needed. Job ID: [id number]
--- NOTE | 2019-05-16 06:05 | PQF ---
IKER RIVERA RYAN ANDREW MD [id number] [address] [place] [address] [id number] CLINICAL DOCUMENTATION CLARIFICATION FORM: POST DISCHARGE Addendum to original discharge summary date: ____ Late entry note date: __ DATE: 05/16/2019 ATTN: Dirk Rush Please exercise your independent, professional judgment in responding to the clarification form. Clinical indicators are provided on the bottom of this form for your review Please check appropriate box(s): [ X ] Primary/Essential Hypertension [ ] Emergency [ ] Urgency [ ] Crisis [ ] Hypertension with Encephalopathy [ ] Transient Hypertension [ ] Other diagnosis [ ] Unable to determine In addition, please specify: Present on Admission (POA): [ X ] Yes [ ] No [ ] Unable to determine For continuity of documentation, please document condition throughout progress notes and discharge summary. Thank You. CLINICAL INDICATORS - SIGNS / SYMPTOMS / LABS Vital signs 05/12 BP 157/83, Pulse 76, Resp 18 Vital signs 05/13 BP 142/70, Pulse 70, Resp 16 H&P p1 05/12 Graciela YOUNG presenting with complaints of slurred speech since she woke up this morning H&P p1 05/12 Graciela YOUNG On arrival in the ED, she was noted to had elevated blood pressure of 178/93 H&P p1 05/12 Graciela YOUNG the pt had an EKG done showing normal sinus rhythm with a heart rate of 83 RISK FACTORS H&P p1 05/12 84 year old Female H&P p1 2 Hypertension H&P p1 05/12 Hypothyroidism H&P p1 05/12 Smokes a pack per day PN p1 05/13 Left MCA Stroke TREATMENTS: JUN 02 Aspirin Chewable 81 mg JUN 03 Lipitor 40mg JUN 03 IVF 1L H&P p2 05/12 Monitor blood pressure (This form is maintained as a part of the permanent medical record) 2014 [email or web address]. All Rights Reserved [email or web address]
== END 2019-05-14 11:18 | disposition home or self-care (01) | DRG 66 ==
LOC: ERS 20:56 → 2SE 23:38 → OBSVTOIN 05-13 15:39
PROVIDERS: ADMIT Internal Medicine; ATTEND Internal Medicine
DX: I63.512 Cerebral infarction due to unspecified occlusion or stenosis of left middle cerebral artery (principal); I10 Essential (primary) hypertension; E03.9 Hypothyroidism, unspecified; J44.9 Chronic obstructive pulmonary disease, unspecified; R47.81 Slurred speech; Z60.2 Problems related to living alone; F17.200 Nicotine dependence, unspecified, uncomplicated; R29.810 Facial weakness; R47.1 Dysarthria and anarthria; R29.703 NIHSS score 3; R40.2362 Coma scale, best motor response, obeys commands, at arrival to emergency department; R40.2142 Coma scale, eyes open, spontaneous, at arrival to emergency department; R40.2252 Coma scale, best verbal response, oriented, at arrival to emergency department; Z90.710 Acquired absence of both cervix and uterus; Z79.899 Other long term (current) drug therapy; Z79.890 Hormone replacement therapy
CPT/HCPCS: 36415; 36416; 70450; 70551; 80053; 80061; 81001; 82550; 83735; 84443; 84484; 85025; 85610; 85730; 93005; 93306; 93880; 94640; J7620; S0028

== ENCOUNTER 2020-08-05 11:14 | Inpatient (IN) | payer MEDICARE ==
[2020-08-05 11:51] LABS: #Lymphocytes 0.9 thou/uL (1.20-3.40); #Neutrophils 13.5 thou/uL (1.40-6.50); %Eosinophils 0.2 % (0.0-10.0); %Lymphocytes 5.8 % (21.0-51.0); %Monocytes 6.3 % (0.0-10.0); %Neutrophils 87.7 % (42.0-75.0); Hemoglobin 7.6 g/dL (12.0-16.0); Mean Corpuscular HGB CONC 30.8 g/dL (32.0-36.0); Mean Corpuscular Hemoglobin 26.4 pg (27.0-31.0); Mean Corpuscular Volume 85.5 fL (78.0-98.0); Mean Platelet Volume 6.3 fL (7.4-10.4); Platelet Count 791 thou/uL (130-400); RBC Distribution Width 13.9 % (11.5-14.5); Red Blood Cell (RBC) Count 2.88 mill/uL (4.20-5.40); White Blood Cell (WBC) Count 15.3 thou/uL (4.8-10.8)
[2020-08-05] MEDS ORDERED: Pantoprazole 40 MG VIAL ONE (12:21)
[2020-08-05 12:24] LABS: ALT (SGPT) 14 U/L (8-55); AST (SGOT) 21 U/L (5-34); Albumin 4.2 g/dL (3.4-4.8); Alkaline Phosphatase 136 U/L (40-110); Anion Gap 16 mmol/L (10-20); BUN (Urea Nitrogen) 17 mg/dL (9.8-20.1); Bilirubin, Total 0.5 mg/dL (0.2-1.2); Calc. Creatinine Clearance 0 mL/min (70-130); Calcium 10.8 mg/dL (7.8-10.44); Carbon Dioxide 25 mmol/L (23-31); Chloride 95 mmol/L (98-107); Globulin 4.7 g/dL (2.4-3.5); Glucose 103 mg/dL (83-110); Potassium 4.3 mmol/L (3.5-5.1); Protein, Total 8.9 g/dL (5.8-8.1); Sodium 132 mmol/L (136-145)
[2020-08-05] MEDS ORDERED: Glycerin Adult Supp. (24 ct jar) RC SCH (15:00)
[2020-08-05] MEDS ORDERED: Sodium Chloride 0.9% 500 ML IV SCH (17:30)
[2020-08-05 17:53] LABS: #Eosinphils 0.1 thou/uL (0.0-0.7); #Monocytes 0.8 thou/uL (0.11-0.59); #Neutrophils 12.5 thou/uL (1.40-6.50); %Basophils 0.1 % (0.0-1.0); %Eosinophils 0.3 % (0.0-10.0); %Lymphocytes 7.1 % (21.0-51.0); %Monocytes 5.7 % (0.0-10.0); %Neutrophils 86.8 % (42.0-75.0); Hemoglobin 7.5 g/dL (12.0-16.0); Mean Corpuscular HGB CONC 31.2 g/dL (32.0-36.0); Mean Corpuscular Hemoglobin 26.6 pg (27.0-31.0); Mean Corpuscular Volume 85.2 fL (78.0-98.0); Platelet Count 741 thou/uL (130-400); RBC Distribution Width 13.7 % (11.5-14.5); Red Blood Cell (RBC) Count 2.81 mill/uL (4.20-5.40); White Blood Cell (WBC) Count 14.4 thou/uL (4.8-10.8)
[2020-08-05] MEDS ORDERED: cefTRIAXone\\ROCEPHIN 1 GM in Sodium Chloride 0.9% 100 ML IVPB SCH (18:00)
[2020-08-05 18:16] LABS: Iron 11 ug/dL (50-170); Iron Binding Capacity, Total 471 mcg/dL (265-497); Transferrin, Serum 377 mg/dL (173-360)
[2020-08-05 18:42] LABS: Free T4 (Free Thyroxine) 1.14 ng/dL (0.70-1.48); Thyroid Stimulating Hormone 0.7715 uIU/mL (0.35-4.94)
[2020-08-05 19:46] VITALS: BMI 16.9
[2020-08-05] MEDS: Pantoprazole 40 MG VIAL IVP SCH (20:05)
[2020-08-05] MEDS: Sodium Chloride 0.9% 1,000 ML IV SCH (20:11)
[2020-08-05 22:51] LABS: #Eosinphils 0.1 thou/uL (0.0-0.7); #Monocytes 0.9 thou/uL (0.11-0.59); #Neutrophils 11.6 thou/uL (1.40-6.50); %Basophils 0.2 % (0.0-1.0); %Eosinophils 0.6 % (0.0-10.0); %Monocytes 6.5 % (0.0-10.0); %Neutrophils 85.7 % (42.0-75.0); Hemoglobin 6.9 g/dL (12.0-16.0); Mean Corpuscular HGB CONC 30.2 g/dL (32.0-36.0); Mean Corpuscular Hemoglobin 25.9 pg (27.0-31.0); Mean Corpuscular Volume 85.8 fL (78.0-98.0); Mean Platelet Volume 6.1 fL (7.4-10.4); Platelet Count 679 thou/uL (130-400); RBC Distribution Width 13.6 % (11.5-14.5); Red Blood Cell (RBC) Count 2.65 mill/uL (4.20-5.40); White Blood Cell (WBC) Count 13.5 thou/uL (4.8-10.8)
[2020-08-06] MEDS: Sodium Chloride 0.9% 1,000 ML IV SCH ×3 (04:48→18:04)
[2020-08-06 05:43] LABS: SARS-CoV-2 PCR by NAA Not Detected (NotDetected)
[2020-08-06 06:27] LABS: #Eosinphils 0.1 thou/uL (0.0-0.7); #Lymphocytes 1.2 thou/uL (1.20-3.40); #Monocytes 0.9 thou/uL (0.11-0.59); #Neutrophils 11.2 thou/uL (1.40-6.50); %Basophils 0.1 % (0.0-1.0); %Eosinophils 0.7 % (0.0-10.0); %Monocytes 6.9 % (0.0-10.0); %Neutrophils 83.3 % (42.0-75.0); Mean Corpuscular HGB CONC 29.4 g/dL (32.0-36.0); Mean Corpuscular Hemoglobin 25.4 pg (27.0-31.0); Mean Corpuscular Volume 86.5 fL (78.0-98.0); Mean Platelet Volume 7.9 fL (7.4-10.4); Platelet Count 520 thou/uL (130-400); RBC Distribution Width 13.9 % (11.5-14.5); Red Blood Cell (RBC) Count 2.75 mill/uL (4.20-5.40); White Blood Cell (WBC) Count 13.5 thou/uL (4.8-10.8)
[2020-08-06] MEDS: Pantoprazole 40 MG VIAL IVP SCH ×2 (08:19→20:00)
[2020-08-06] MEDS ORDERED: Acetaminophen 500 MG TAB PO PRN (12:33)
[2020-08-06] MEDS ORDERED: Iron Sucrose Complex 200 MG in Sodium Chloride 0.9% 100 ML IVPB SCH (12:45)
[2020-08-06] MEDS ORDERED: Iron, Sodium Ferric Gluconate 250 MG in Sodium Chloride 0.9% 250 ML 250 ML IVPB SCH (12:45)
[2020-08-06 13:52] LABS: #Eosinphils 0.1 thou/uL (0.0-0.7); #Lymphocytes 0.9 thou/uL (1.20-3.40); #Monocytes 0.7 thou/uL (0.11-0.59); #Neutrophils 10.5 thou/uL (1.40-6.50); %Basophils 0.3 % (0.0-1.0); %Eosinophils 0.6 % (0.0-10.0); %Lymphocytes 7.7 % (21.0-51.0); %Monocytes 5.4 % (0.0-10.0); %Neutrophils 86.1 % (42.0-75.0); Mean Corpuscular HGB CONC 31.2 g/dL (32.0-36.0); Mean Corpuscular Hemoglobin 26.9 pg (27.0-31.0); Mean Corpuscular Volume 86.5 fL (78.0-98.0); Platelet Count 514 thou/uL (130-400); RBC Distribution Width 13.7 % (11.5-14.5); Red Blood Cell (RBC) Count 3.36 mill/uL (4.20-5.40); White Blood Cell (WBC) Count 12.2 thou/uL (4.8-10.8)
[2020-08-06 22:32] LABS: Hemoglobin 8.4 g/dL (12.0-16.0); Platelet Count 565 thou/uL (130-400)
[2020-08-07] MEDS: Sodium Chloride 0.9% 1,000 ML IV SCH ×2 (02:23→11:02)
[2020-08-07] MEDS: Levothyroxine Sodium 50 MCG TAB PO SCH (05:29)
[2020-08-07 06:00] LABS: #Eosinphils 0.1 thou/uL (0.0-0.7); #Lymphocytes 1.2 thou/uL (1.20-3.40); #Monocytes 1.1 thou/uL (0.11-0.59); #Neutrophils 9.4 thou/uL (1.40-6.50); %Eosinophils 1.1 % (0.0-10.0); %Lymphocytes 10.1 % (21.0-51.0); %Monocytes 8.9 % (0.0-10.0); %Neutrophils 79.8 % (42.0-75.0); Hemoglobin 8.3 g/dL (12.0-16.0); Mean Corpuscular HGB CONC 29.9 g/dL (32.0-36.0); Mean Corpuscular Hemoglobin 25.9 pg (27.0-31.0); Mean Corpuscular Volume 86.6 fL (78.0-98.0); Mean Platelet Volume 6.9 fL (7.4-10.4); Platelet Count 509 thou/uL (130-400); RBC Distribution Width 13.7 % (11.5-14.5); Red Blood Cell (RBC) Count 3.22 mill/uL (4.20-5.40); White Blood Cell (WBC) Count 11.8 thou/uL (4.8-10.8)
[2020-08-07 06:23] LABS: Anion Gap 15 mmol/L (10-20); BUN (Urea Nitrogen) 13 mg/dL (9.8-20.1); Calc. Creatinine Clearance 37 mL/min (70-130); Calcium 9.3 mg/dL (7.8-10.44); Carbon Dioxide 19 mmol/L (23-31); Chloride 102 mmol/L (98-107); Glucose 92 mg/dL (83-110); Potassium 3.8 mmol/L (3.5-5.1); Sodium 132 mmol/L (136-145)
[2020-08-07] MEDS: Multivit, Therapeutic 1 TAB PO SCH (08:13)
[2020-08-07] MEDS: Pantoprazole 40 MG VIAL IVP SCH (08:13)
[2020-08-07] MEDS ORDERED: Megestrol Acetate 40 MG TAB PO SCH (11:30)
[2020-08-07] MEDS ORDERED: GoLYTELY 4,000 ml Bottle PO SCH (19:00)
[2020-08-07] MEDS: Megestrol Acetate 40 MG TAB PO SCH (19:34)
[2020-08-08] MEDS: Levothyroxine Sodium 50 MCG TAB PO SCH (05:55)
[2020-08-08 07:04] LABS: ALT (SGPT) 12 U/L (8-55); AST (SGOT) 16 U/L (5-34); Albumin 3.3 g/dL (3.4-4.8); Alkaline Phosphatase 108 U/L (40-110); Bilirubin, Direct 0.2 mg/dL (0.1-0.3); Bilirubin, Total 0.4 mg/dL (0.2-1.2); Protein, Total 7.2 g/dL (5.8-8.1)
[2020-08-08] MEDS: Multivit, Therapeutic 1 TAB PO SCH (07:18)
[2020-08-08] MEDS: Megestrol Acetate 40 MG TAB PO SCH ×2 (07:18→20:34)
[2020-08-08 07:35] LABS: Hemoglobin 9.3 g/dL (12.0-16.0); Platelet Count 498 thou/uL (130-400)
[2020-08-08] MEDS ORDERED: PROPOFOL 200 MG/20 ML VIAL ONE (10:26)
[2020-08-08] MEDS ORDERED: Ondansetron HCl/PF 4 MG/2 ML Vial IVP PRN (10:50)
[2020-08-08] MEDS ORDERED: Fleet Enema 133 ML BOT PR SCH ×2 (11:00→16:15)
[2020-08-08] MEDS ORDERED: Iron, Sodium Ferric Gluconate 250 MG in Sodium Chloride 0.9% 250 ML 250 ML IVPB SCH (11:15)
[2020-08-08] MEDS: Polyethylene Glycol 3350 17 GM Packet PO SCH (11:43)
[2020-08-08] MEDS ORDERED: GoLYTELY 4,000 ml Bottle PO SCH (16:15)
[2020-08-08] MEDS: Fleet Enema 133 ML BOT PR SCH (20:35)
[2020-08-09] MEDS: Fleet Enema 133 ML BOT PR SCH ×6 (01:24→17:09)
[2020-08-09] MEDS: Levothyroxine Sodium 50 MCG TAB PO SCH (05:21)
[2020-08-09 05:22] LABS: Hemoglobin 7.7 g/dL (12.0-16.0); Platelet Count 500 thou/uL (130-400)
[2020-08-09] MEDS: Polyethylene Glycol 3350 17 GM Packet PO SCH (09:00)
[2020-08-09] MEDS ORDERED: PROPOFOL 200 MG/20 ML VIAL ONE (14:24)
[2020-08-09] MEDS ORDERED: Promethazine HCl 25 MG/ML VIAL SLOW IVP PRN (14:51)
[2020-08-09] MEDS ORDERED: Ondansetron HCl/PF 4 MG/2 ML Vial IVP PRN (14:51)
[2020-08-09] MEDS ORDERED: Promethazine HCl 25 MG/ML VIAL IM PRN (14:51)
[2020-08-09] MEDS: Megestrol Acetate 40 MG TAB PO SCH ×2 (15:45→20:17)
[2020-08-09] MEDS: Multivit, Therapeutic 1 TAB PO SCH (15:45)
[2020-08-09 16:34] LABS: Platelet Count 481 thou/uL (130-400)
[2020-08-09] MEDS: Atorvastatin Calcium 40 MG TAB PO SCH (20:17)
[2020-08-10] MEDS: Levothyroxine Sodium 50 MCG TAB PO SCH (06:03)
[2020-08-10 06:13] LABS: #Eosinphils 0.1 thou/uL (0.0-0.7); #Lymphocytes 1.1 thou/uL (1.20-3.40); %Basophils 0.5 % (0.0-1.0); %Eosinophils 0.9 % (0.0-10.0); %Lymphocytes 13.3 % (21.0-51.0); %Monocytes 11.8 % (0.0-10.0); %Neutrophils 73.5 % (42.0-75.0); Hemoglobin 8.4 g/dL (12.0-16.0); Mean Corpuscular HGB CONC 31.9 g/dL (32.0-36.0); Mean Corpuscular Hemoglobin 27.4 pg (27.0-31.0); Mean Corpuscular Volume 85.9 fL (78.0-98.0); Mean Platelet Volume 6.6 fL (7.4-10.4); Platelet Count 482 thou/uL (130-400); RBC Distribution Width 14.9 % (11.5-14.5); Red Blood Cell (RBC) Count 3.05 mill/uL (4.20-5.40); White Blood Cell (WBC) Count 8.1 thou/uL (4.8-10.8)
[2020-08-10 06:28] LABS: Phosphorus 2.6 mg/dL (2.3-4.7)
[2020-08-10 06:36] LABS: Anion Gap 14 mmol/L (10-20); BUN (Urea Nitrogen) 8 mg/dL (9.8-20.1); Calc. Creatinine Clearance 36 mL/min (70-130); Calcium 9.9 mg/dL (7.8-10.44); Carbon Dioxide 28 mmol/L (23-31); Chloride 97 mmol/L (98-107); Glucose 96 mg/dL (83-110); Magnesium 1.8 mg/dL (1.6-2.6); Sodium 136 mmol/L (136-145)
[2020-08-10 06:43] LABS: Potassium 2.6 mmol/L (3.5-5.1)
[2020-08-10] MEDS ORDERED: Potassium Chloride 20 MEQ TAB PO SCH (07:15)
[2020-08-10] MEDS ORDERED: Potassium Chloride 20 MEQ in Premix Bag 1 BAG IVPB SCH (07:45)
[2020-08-10] MEDS: Polyethylene Glycol 3350 17 GM Packet PO SCH (08:31)
[2020-08-10] MEDS: Megestrol Acetate 40 MG TAB PO SCH ×2 (08:31→22:23)
[2020-08-10] MEDS: Multivit, Therapeutic 1 TAB PO SCH (08:31)
[2020-08-10] MEDS ORDERED: Magnesium 2 GM/50 ML 2 GM in Premix Bag 1 BAG IVPB SCH (13:15)
[2020-08-10] MEDS: Potassium Chloride 20 MEQ TAB PO SCH (17:09)
[2020-08-10] MEDS: Atorvastatin Calcium 40 MG TAB PO SCH (22:23)
[2020-08-11] MEDS: Levothyroxine Sodium 50 MCG TAB PO SCH (06:13)
[2020-08-11 07:25] LABS: Potassium 3.7 mmol/L (3.5-5.1)
[2020-08-11] MEDS ORDERED: Ferrous Sulfate 325 MG TAB PO SCH (08:00)
[2020-08-11] MEDS: Potassium Chloride 20 MEQ TAB PO SCH ×2 (08:06→17:20)
[2020-08-11] MEDS: Polyethylene Glycol 3350 17 GM Packet PO SCH (08:06)
[2020-08-11] MEDS: Multivit, Therapeutic 1 TAB PO SCH (08:06)
[2020-08-11] MEDS: Megestrol Acetate 40 MG TAB PO SCH (08:07)
[2020-08-11] MEDS ORDERED: Multivit, Therapeutic 1 TAB PO SCH (09:00)
[2020-08-11 09:08] VITALS: BP 179/93; TEMP 98.4
[2020-08-11 18:36] LABS: A/G Ratio 0.7 (0.7-1.7); Albumin 2.9 g/dL (2.9-4.4); Alpha 1 0.4 g/dL (0.0-0.4); Alpha 2 1.2 g/dL (0.4-1.0); Gamma 1.4 g/dL (0.4-1.8); M-Spike Note: g/dL (Not Observed)
== END 2020-08-11 18:17 | disposition home health service (06) | DRG 378 ==
LOC: ERS 11:14 → SUATTDRO 11:14 → T4-A 14:50
PROVIDERS: ADMIT Internal Medicine; ATTEND Internal Medicine
PROC: 30233N1 Transfusion of Nonautologous Red Blood Cells into Peripheral Vein, Percutaneous Approach (ICD-10-PCS; principal; 2020-08-06)
PROC: 0DB78ZX Excision of Stomach, Pylorus, Via Natural or Artificial Opening Endoscopic, Diagnostic (ICD-10-PCS; 2020-08-09)
PROC: 0DJD8ZZ Inspection of Lower Intestinal Tract, Via Natural or Artificial Opening Endoscopic (ICD-10-PCS; 2020-08-09)
PROC: 0W3P8ZZ Control Bleeding in Gastrointestinal Tract, Via Natural or Artificial Opening Endoscopic (ICD-10-PCS; 2020-08-09)
DX: K55.21 Angiodysplasia of colon with hemorrhage (principal); E44.0 Moderate protein-calorie malnutrition; D62 Acute posthemorrhagic anemia; Z68.1 Body mass index [BMI] 19.9 or less, adult; K29.01 Acute gastritis with bleeding; Z20.822 Contact with and (suspected) exposure to COVID-19; E03.9 Hypothyroidism, unspecified; I10 Essential (primary) hypertension; J44.9 Chronic obstructive pulmonary disease, unspecified; D50.9 Iron deficiency anemia, unspecified; D47.3 Essential (hemorrhagic) thrombocythemia; E78.5 Hyperlipidemia, unspecified; K56.41 Fecal impaction; K57.31 Diverticulosis of large intestine without perforation or abscess with bleeding; F17.210 Nicotine dependence, cigarettes, uncomplicated; Z90.710 Acquired absence of both cervix and uterus; Z79.890 Hormone replacement therapy; Z79.82 Long term (current) use of aspirin; Z79.899 Other long term (current) drug therapy; I69.398 Other sequelae of cerebral infarction; E87.6 Hypokalemia; E83.42 Hypomagnesemia
CPT/HCPCS: 36415; 36430; 80048; 80053; 80076; 82274; 82607; 82728; 82746; 83540; 83550; 83735; 84100; 84132; 84165; 84439; 84443; 84466; 84481; 85014; 85018; 85025; 85049; 85610; 85730; 86850; 86900; 86901; 86921; 87635; 88305; 94640; 96374; C9113; J2704; J2916; J3475; J3480; J7050; J7620; P9016; S0179; U0003; U0005

== ENCOUNTER 2020-08-16 10:08 | Inpatient (IN) | payer MEDICARE ==
[2020-08-16 11:06] LABS: #Lymphocytes 0.8 thou/uL (1.20-3.40); #Monocytes 0.8 thou/uL (0.11-0.59); #Neutrophils 9.1 thou/uL (1.40-6.50); %Basophils 0.2 % (0.0-1.0); %Eosinophils 0.4 % (0.0-10.0); %Lymphocytes 7.3 % (21.0-51.0); %Neutrophils 85.1 % (42.0-75.0); Hemoglobin 10.2 g/dL (12.0-16.0); Mean Corpuscular HGB CONC 31.7 g/dL (32.0-36.0); Mean Corpuscular Hemoglobin 28.4 pg (27.0-31.0); Mean Corpuscular Volume 89.6 fL (78.0-98.0); Mean Platelet Volume 7.4 fL (7.4-10.4); Platelet Count 393 thou/uL (130-400); RBC Distribution Width 15.6 % (11.5-14.5); Red Blood Cell (RBC) Count 3.59 mill/uL (4.20-5.40); White Blood Cell (WBC) Count 10.7 thou/uL (4.8-10.8)
[2020-08-16 11:31] LABS: ALT (SGPT) 23 U/L (8-55); AST (SGOT) 21 U/L (5-34); Albumin 3.9 g/dL (3.4-4.8); Alkaline Phosphatase 101 U/L (40-110); Anion Gap 16 mmol/L (10-20); BUN (Urea Nitrogen) 21 mg/dL (9.8-20.1); Bilirubin, Total 0.5 mg/dL (0.2-1.2); Calc. Creatinine Clearance 0 mL/min (70-130); Calcium 10.2 mg/dL (7.8-10.44); Carbon Dioxide 26 mmol/L (23-31); Chloride 100 mmol/L (98-107); Globulin 4.1 g/dL (2.4-3.5); Glucose 112 mg/dL (83-110); Potassium 3.7 mmol/L (3.5-5.1); Sodium 138 mmol/L (136-145)
[2020-08-16] MEDS ORDERED: Iopamidol-370 76% 500 ML 1 ML ONE (11:35)
[2020-08-16] MEDS ORDERED: Aspirin Chewable 81 MG TAB ONE (13:31)
[2020-08-16] MEDS ORDERED: Haloperidol Lactate 5 MG/ML VIAL ONE (13:54)
[2020-08-16] MEDS ORDERED: Lorazepam 2 MG/ML VIAL SLOW IVP SCH (14:15)
[2020-08-16] MEDS ORDERED: Lorazepam 2 MG/ML VIAL ONE (14:21)
[2020-08-16] MEDS ORDERED: Bisacodyl 10 MG SUPP PR SCH ×2 (14:30→22:30)
[2020-08-16 14:34] LABS: Troponin I Less than 0.010 ng/mL (< 0.028)
[2020-08-16 14:58] LABS: Bilirubin Negative (Negative); Blood, Urine Negative (Negative); Clarity Clear (Clear); Glucose, Urine (Dipstick) Normal (Negative); Ketone, Urine Negative (Negative); Leukocyte Negative Leu/uL (Negative); Nitrite Negative (Negative); Protein, Urine (Dipstick) 20 mg/dL (Neg-Trace); Specific Gravity, Urine 1.037 (1.002-1.036); Urobilinogen Normal mg/dL (Less than 2); pH, Urine 6.5 (5.0-9.0)
[2020-08-16] MEDS ORDERED: Acetaminophen 650 MG Suppository PR PRN (15:05)
[2020-08-16] MEDS ORDERED: Acetaminophen 325 MG TAB PO PRN (15:05)
[2020-08-16] MEDS ORDERED: Aspirin 300 MG Suppository ONE (17:15)
[2020-08-16] MEDS: Sodium Chloride 0.9% 1,000 ML IV SCH (17:27)
[2020-08-16 17:44] VITALS: BMI 16.8
[2020-08-16 17:52] LABS: Lactic Acid 1.4 mmol/L (0.5-2.2)
[2020-08-16 18:01] LABS: Troponin I 0.011 ng/mL (< 0.028)
[2020-08-17 02:50] LABS: Bacteria/HPF None Seen HPF (None Seen); Bilirubin Negative (Negative); Blood, Urine 3+ (Negative); Clarity Clear (Clear); Glucose, Urine (Dipstick) Normal (Negative); Ketone, Urine 10 mg/dL (Negative); Leukocyte 250 Leu/uL (Negative); Nitrite Negative (Negative); Protein, Urine (Dipstick) 20 mg/dL (Neg-Trace); RBC/HPF Greater than 50 HPF (0-3); Specific Gravity, Urine 1.027 (1.002-1.036); Squamous Epithelial 0-3 HPF (0-3); Urobilinogen Normal mg/dL (Less than 2); WBC/HPF Greater than 50 HPF (0-3); pH, Urine 6.5 (5.0-9.0)
[2020-08-17 02:51] LABS: Urine Culture Reflex Yes Yes
[2020-08-17 06:00] LABS: #Lymphocytes 1.2 thou/uL (1.20-3.40); #Monocytes 0.7 thou/uL (0.11-0.59); #Neutrophils 8.1 thou/uL (1.40-6.50); %Basophils 0.1 % (0.0-1.0); %Eosinophils 0.5 % (0.0-10.0); %Lymphocytes 11.8 % (21.0-51.0); %Monocytes 7.2 % (0.0-10.0); %Neutrophils 80.4 % (42.0-75.0); Mean Corpuscular HGB CONC 30.1 g/dL (32.0-36.0); Mean Corpuscular Hemoglobin 26.7 pg (27.0-31.0); Mean Corpuscular Volume 88.8 fL (78.0-98.0); Mean Platelet Volume 8.5 fL (7.4-10.4); Platelet Count 392 thou/uL (130-400); RBC Distribution Width 16.1 % (11.5-14.5); Red Blood Cell (RBC) Count 3.72 mill/uL (4.20-5.40); White Blood Cell (WBC) Count 10.1 thou/uL (4.8-10.8)
[2020-08-17 06:20] LABS: Anion Gap 17 mmol/L (10-20); BUN (Urea Nitrogen) 17 mg/dL (9.8-20.1); Calc. Creatinine Clearance 37 mL/min (70-130); Calcium 10.3 mg/dL (7.8-10.44); Carbon Dioxide 21 mmol/L (23-31); Cardiac Risk 2.1 (Less than 4.5); Chloride 102 mmol/L (98-107); Cholesterol 146 mg/dl (< 200 Desired); Glucose 76 mg/dL (83-110); HDL Cholesterol 68 mg/dL (>60 Neg Risk); LDL Cholesterol, Calculated 43 mg/dL; Potassium 3.5 mmol/L (3.5-5.1); Sodium 136 mmol/L (136-145); Triglycerides 174 mg/dL (Less than 150)
[2020-08-17 06:39] LABS: Free T4 (Free Thyroxine) 1.16 ng/dL (0.70-1.48); Thyroid Stimulating Hormone 1.2738 uIU/mL (0.35-4.94)
[2020-08-17] MEDS ORDERED: Aspirin 300 MG Suppository PR SCH (09:00)
[2020-08-17] MEDS ORDERED: cefTRIAXone\\ROCEPHIN 1 GM in Sodium Chloride 0.9% 100 ML IVPB SCH (09:30)
[2020-08-17] MEDS: Sodium Chloride 0.9% 1,000 ML IV SCH (16:06)
[2020-08-17] MEDS ORDERED: Lisinopril 20 MG TAB PO SCH (16:45)
[2020-08-17] MEDS ORDERED: Amlodipine 10 MG TAB PO SCH (16:45)
[2020-08-17] MEDS: Senokot S 8.6-50 MG TAB PO SCH (21:48)
[2020-08-18] MEDS: Levothyroxine Sodium 50 MCG TAB PO SCH (06:14)
[2020-08-18] MEDS: Atorvastatin Calcium 40 MG TAB PO SCH (08:56)
[2020-08-18] MEDS: Amlodipine 10 MG TAB PO SCH (08:56)
[2020-08-18] MEDS: Lisinopril 20 MG TAB PO SCH (08:56)
[2020-08-18] MEDS: Aspirin 325 MG TAB PO SCH (08:56)
[2020-08-18] MEDS: Polyethylene Glycol 3350 17 GM Packet PO SCH (08:56)
[2020-08-18] MEDS: Senokot S 8.6-50 MG TAB PO SCH ×2 (08:56→20:31)
[2020-08-18] MEDS ORDERED: Amlodipine 10 MG TAB PO SCH (09:00)
[2020-08-18] MEDS ORDERED: Lisinopril 20 MG TAB PO SCH (09:00)
[2020-08-18] MEDS: Sodium Chloride 0.9% 1,000 ML IV SCH (16:11)
[2020-08-19] MEDS: Levothyroxine Sodium 50 MCG TAB PO SCH (05:26)
[2020-08-19] MEDS: Amlodipine 10 MG TAB PO SCH (09:18)
[2020-08-19] MEDS: Atorvastatin Calcium 40 MG TAB PO SCH (09:18)
[2020-08-19] MEDS: Aspirin 325 MG TAB PO SCH (09:19)
[2020-08-19] MEDS: Lisinopril 20 MG TAB PO SCH (09:19)
[2020-08-19] MEDS: Senokot S 8.6-50 MG TAB PO SCH (09:19)
[2020-08-19] MEDS: Polyethylene Glycol 3350 17 GM Packet PO SCH (09:19)
[2020-08-19 11:51] VITALS: BP 121/67; TEMP 98
[2020-08-19] MEDS: Sodium Chloride 0.9% 1,000 ML IV SCH (13:08)
== END 2020-08-19 15:33 | DRG 388 ==
LOC: ERS 10:08 → 2SE 13:41 → OBSVTOIN 08-18 09:39
PROVIDERS: ADMIT Internal Medicine; ATTEND Internal Medicine
PROC: 0T9B70Z Drainage of Bladder with Drainage Device, Via Natural or Artificial Opening (ICD-10-PCS; principal; 2020-08-18)
DX: K56.41 Fecal impaction (principal); G93.41 Metabolic encephalopathy; E43 Unspecified severe protein-calorie malnutrition; Z68.1 Body mass index [BMI] 19.9 or less, adult; M48.56XA Collapsed vertebra, not elsewhere classified, lumbar region, initial encounter for fracture; F01.51 Vascular dementia, unspecified severity, with behavioral disturbance; N39.0 Urinary tract infection, site not specified; Z20.822 Contact with and (suspected) exposure to COVID-19; Z66 Do not resuscitate; R62.7 Adult failure to thrive; R33.9 Retention of urine, unspecified; I10 Essential (primary) hypertension; E03.9 Hypothyroidism, unspecified; J44.9 Chronic obstructive pulmonary disease, unspecified; R91.1 Solitary pulmonary nodule; K83.8 Other specified diseases of biliary tract; Z86.718 Personal history of other venous thrombosis and embolism; Z79.890 Hormone replacement therapy; Z90.710 Acquired absence of both cervix and uterus; Z83.49 Family history of other endocrine, nutritional and metabolic diseases; Z79.899 Other long term (current) drug therapy; Z86.73 Personal history of transient ischemic attack (TIA), and cerebral infarction without residual deficits
CPT/HCPCS: 36415; 36416; 51701; 51798; 70450; 70551; 70552; 71260; 72125; 74177; 80048; 80053; 80061; 81001; 81003; 82140; 83605; 83735; 84439; 84443; 84484; 85025; 87086; 87635; 93005; 96365; 96372; 96374; 96375; G0378; J0696; J1630; J2060; J3490; Q9967; U0003; U0005

== ENCOUNTER 2020-09-26 12:20 | Inpatient (IN) | payer MEDICARE ==
[2020-09-26 13:06] LABS: Bilirubin Negative (Negative); Blood, Urine 3+ (Negative); Clarity Extra Turbid (Clear); Glucose, Urine (Dipstick) Normal (Negative); Ketone, Urine Negative (Negative); Leukocyte 500 Leu/uL (Negative); Nitrite Negative (Negative); Protein, Urine (Dipstick) 70 mg/dL (Neg-Trace); RBC/HPF Greater than 50 HPF (0-3); Specific Gravity, Urine 1.022 (1.002-1.036); Squamous Epithelial None Seen HPF (0-3); Urobilinogen Normal mg/dL (Less than 2); WBC/HPF Greater than 50 HPF (0-3); pH, Urine 5.5 (5.0-9.0)
[2020-09-26 13:07] LABS: Bacteria/HPF 1+ HPF (None Seen)
[2020-09-26 13:27] LABS: #Eosinphils 0.1 thou/uL (0.0-0.7); #Lymphocytes 1.1 thou/uL (1.20-3.40); #Monocytes 1.1 thou/uL (0.11-0.59); #Neutrophils 13.7 thou/uL (1.40-6.50); %Eosinophils 0.5 % (0.0-10.0); %Lymphocytes 6.8 % (21.0-51.0); %Monocytes 6.7 % (0.0-10.0); Hemoglobin 7.6 g/dL (12.0-16.0); Mean Corpuscular HGB CONC 32.4 g/dL (32.0-36.0); Mean Corpuscular Hemoglobin 28.9 pg (27.0-31.0); Mean Corpuscular Volume 89.2 fL (78.0-98.0); Mean Platelet Volume 7.5 fL (7.4-10.4); Platelet Count 344 thou/uL (130-400); RBC Distribution Width 17.8 % (11.5-14.5); Red Blood Cell (RBC) Count 2.62 mill/uL (4.20-5.40); White Blood Cell (WBC) Count 15.9 thou/uL (4.8-10.8)
[2020-09-26 13:52] LABS: ALT (SGPT) 30 U/L (8-55); AST (SGOT) 27 U/L (5-34); Albumin 3.4 g/dL (3.4-4.8); Alkaline Phosphatase 148 U/L (40-110); Anion Gap 14 mmol/L (10-20); BUN (Urea Nitrogen) 56 mg/dL (9.8-20.1); Bilirubin, Total 0.2 mg/dL (0.2-1.2); Calc. Creatinine Clearance 0 mL/min (70-130); Calcium 9.8 mg/dL (7.8-10.44); Carbon Dioxide 17 mmol/L (23-31); Chloride 110 mmol/L (98-107); Globulin 4.2 g/dL (2.4-3.5); Glucose 103 mg/dL (83-110); Potassium 4.4 mmol/L (3.5-5.1); Protein, Total 7.6 g/dL (5.8-8.1); Sodium 137 mmol/L (136-145)
[2020-09-26] MEDS ORDERED: cefTRIAXone\\ROCEPHIN 1 GM VIAL ONE (15:15)
[2020-09-26] MEDS ORDERED: Ondansetron ODT 4 MG TAB PO PRN (16:34)
[2020-09-26] MEDS ORDERED: Ondansetron PF 4 MG/2 ML Vial IVP PRN (16:34)
[2020-09-26] MEDS ORDERED: Acetaminophen 325 MG TAB PO PRN (16:34)
[2020-09-26] MEDS ORDERED: Acetaminophen 650 MG Suppository PR PRN (16:34)
[2020-09-26] MEDS: Sodium Chloride 0.9% 1,000 ML IV SCH (17:26)
[2020-09-26] MEDS: Ferrous Sulfate 325 MG TAB PO SCH (17:26)
[2020-09-26] MEDS: Atorvastatin Calcium 40 MG TAB PO SCH (21:14)
[2020-09-26 23:25] LABS: Hemoglobin 8.9 g/dL (12.0-16.0)
[2020-09-27] MEDS: Pantoprazole 80 MG, Admixture Fee 1 EACH in Sodium Chloride 0.9% 100 ML IVPB SCH ×2 (03:46→11:28)
[2020-09-27 05:49] LABS: #Eosinphils 0.1 thou/uL (0.0-0.7); #Monocytes 0.9 thou/uL (0.11-0.59); #Neutrophils 8.3 thou/uL (1.40-6.50); %Basophils 0.1 % (0.0-1.0); %Eosinophils 0.8 % (0.0-10.0); %Monocytes 8.4 % (0.0-10.0); %Neutrophils 80.7 % (42.0-75.0); Hemoglobin 7.6 g/dL (12.0-16.0); Mean Corpuscular Hemoglobin 28.1 pg (27.0-31.0); Mean Corpuscular Volume 90.6 fL (78.0-98.0); Mean Platelet Volume 7.1 fL (7.4-10.4); Platelet Count 323 thou/uL (130-400); Red Blood Cell (RBC) Count 2.72 mill/uL (4.20-5.40); White Blood Cell (WBC) Count 10.3 thou/uL (4.8-10.8)
[2020-09-27] MEDS: Sodium Chloride 0.9% 1,000 ML IV SCH ×2 (05:49→20:35)
[2020-09-27] MEDS: Levothyroxine Sodium 50 MCG TAB PO SCH (05:49)
[2020-09-27 06:08] LABS: Anion Gap 13 mmol/L (10-20); BUN (Urea Nitrogen) 38 mg/dL (9.8-20.1); Calc. Creatinine Clearance 31 mL/min (70-130); Calcium 9.4 mg/dL (7.8-10.44); Carbon Dioxide 18 mmol/L (23-31); Chloride 113 mmol/L (98-107); Glucose 78 mg/dL (83-110); Potassium 4.2 mmol/L (3.5-5.1); Sodium 140 mmol/L (136-145)
[2020-09-27] MEDS: Ferrous Sulfate 325 MG TAB PO SCH ×2 (08:02→16:47)
[2020-09-27] MEDS ORDERED: Senokot S 8.6-50 MG TAB PO PRN (09:47)
[2020-09-27] MEDS ORDERED: Polyethylene Glycol 3350 17 GM Packet PO PRN (09:47)
[2020-09-27 11:22] LABS: Hemoglobin 8.4 g/dL (12.0-16.0)
[2020-09-27] MEDS: cefTRIAXone\\ROCEPHIN 1 GM in Sodium Chloride 0.9% 100 ML IVPB SCH (14:25)
[2020-09-27 17:11] LABS: Hemoglobin 7.7 g/dL (12.0-16.0)
[2020-09-27] MEDS: Atorvastatin Calcium 40 MG TAB PO SCH (20:36)
[2020-09-28] MEDS: Levothyroxine Sodium 50 MCG TAB PO SCH (05:01)
[2020-09-28] MEDS: Sodium Chloride 0.9% 1,000 ML IV SCH (05:01)
[2020-09-28] MEDS: Ferrous Sulfate 325 MG TAB PO SCH ×2 (08:03→16:15)
[2020-09-28] MEDS: Lisinopril 20 MG TAB PO SCH (08:03)
[2020-09-28] MEDS: cefTRIAXone\\ROCEPHIN 1 GM in Sodium Chloride 0.9% 100 ML IVPB SCH (16:14)
[2020-09-28] MEDS: Atorvastatin Calcium 40 MG TAB PO SCH (20:09)
[2020-09-29] MEDS: Sodium Chloride 0.9% 1,000 ML IV SCH ×3 (00:36→23:25)
[2020-09-29] MEDS: Levothyroxine Sodium 50 MCG TAB PO SCH (05:42)
[2020-09-29] MEDS: Lisinopril 20 MG TAB PO SCH (09:11)
[2020-09-29] MEDS: Ferrous Sulfate 325 MG TAB PO SCH ×2 (09:11→15:53)
[2020-09-29] MEDS: cefTRIAXone\\ROCEPHIN 1 GM in Sodium Chloride 0.9% 100 ML IVPB SCH (15:53)
[2020-09-29 17:07] VITALS: BMI 18.8
[2020-09-29] MEDS: Atorvastatin Calcium 40 MG TAB PO SCH (20:39)
[2020-09-30] MEDS: Levothyroxine Sodium 50 MCG TAB PO SCH (05:36)
[2020-09-30] MEDS: Lisinopril 20 MG TAB PO SCH (07:52)
[2020-09-30] MEDS: Ferrous Sulfate 325 MG TAB PO SCH ×2 (07:52→17:01)
[2020-09-30] MEDS ORDERED: Mineral Oil ENEMA PR SCH (13:00)
[2020-09-30] MEDS: Sodium Chloride 0.9% 1,000 ML IV SCH (14:06)
[2020-09-30] MEDS: cefTRIAXone\\ROCEPHIN 1 GM in Sodium Chloride 0.9% 100 ML IVPB SCH (14:54)
[2020-09-30] MEDS: Atorvastatin Calcium 40 MG TAB PO SCH (20:03)
[2020-10-01] MEDS: Sodium Chloride 0.9% 1,000 ML IV SCH ×2 (03:33→18:27)
[2020-10-01] MEDS: Levothyroxine Sodium 50 MCG TAB PO SCH (06:10)
[2020-10-01] MEDS: Ferrous Sulfate 325 MG TAB PO SCH ×2 (08:30→16:00)
[2020-10-01] MEDS: Lisinopril 20 MG TAB PO SCH (08:31)
[2020-10-01] MEDS: cefTRIAXone\\ROCEPHIN 1 GM in Sodium Chloride 0.9% 100 ML IVPB SCH (15:58)
[2020-10-01] MEDS: Atorvastatin Calcium 40 MG TAB PO SCH (20:25)
[2020-10-02] MEDS: Levothyroxine Sodium 50 MCG TAB PO SCH (05:15)
[2020-10-02] MEDS: Sodium Chloride 0.9% 1,000 ML IV SCH (05:15)
[2020-10-02 07:29] VITALS: TEMP 98.2
[2020-10-02] MEDS: Lisinopril 20 MG TAB PO SCH (08:20)
[2020-10-02] MEDS: Ferrous Sulfate 325 MG TAB PO SCH ×2 (08:21→16:40)
[2020-10-02] MEDS: cefTRIAXone\\ROCEPHIN 1 GM in Sodium Chloride 0.9% 100 ML IVPB SCH (14:52)
[2020-10-02 15:40] VITALS: BP 161/82
[2020-10-02 15:47] LABS: Mean Corpuscular HGB CONC 32.1 g/dL (32.0-36.0); Mean Corpuscular Volume 90.3 fL (78.0-98.0); Mean Platelet Volume 7.3 fL (7.4-10.4); Platelet Count 378 thou/uL (130-400); RBC Distribution Width 17.9 % (11.5-14.5); Red Blood Cell (RBC) Count 2.75 mill/uL (4.20-5.40); White Blood Cell (WBC) Count 8.3 thou/uL (4.8-10.8)
[2020-10-02 16:03] LABS: Anion Gap 13 mmol/L (10-20); BUN (Urea Nitrogen) 7 mg/dL (9.8-20.1); Calc. Creatinine Clearance 41 mL/min (70-130); Carbon Dioxide 20 mmol/L (23-31); Chloride 107 mmol/L (98-107); Potassium 3.4 mmol/L (3.5-5.1); Sodium 137 mmol/L (136-145)
[2020-10-02 16:04] LABS: Calcium 8.9 mg/dL (7.8-10.44); Glucose 106 mg/dL (83-110)
== END 2020-10-02 19:50 | DRG 698 ==
LOC: ERS 12:20 → ERHOLD 15:29 → T4-B 16:55 → OBSVTOIN 09-28 15:40
PROVIDERS: ADMIT Internal Medicine; ATTEND Internal Medicine
DX: T83.511A Infection and inflammatory reaction due to indwelling urethral catheter, initial encounter (principal); G93.41 Metabolic encephalopathy; A41.52 Sepsis due to Pseudomonas; I69.952 Hemiplegia and hemiparesis following unspecified cerebrovascular disease affecting left dominant side; N17.9 Acute kidney failure, unspecified; E87.2 Acidosis; R64 Cachexia; Z68.1 Body mass index [BMI] 19.9 or less, adult; C34.90 Malignant neoplasm of unspecified part of unspecified bronchus or lung; Z66 Do not resuscitate; Z51.5 Encounter for palliative care; Y84.6 Urinary catheterization as the cause of abnormal reaction of the patient, or of later complication, without mention of misadventure at the time of the procedure; N39.0 Urinary tract infection, site not specified; I10 Essential (primary) hypertension; E78.5 Hyperlipidemia, unspecified; D50.9 Iron deficiency anemia, unspecified; J44.9 Chronic obstructive pulmonary disease, unspecified; E03.9 Hypothyroidism, unspecified; Z79.890 Hormone replacement therapy; Z79.899 Other long term (current) drug therapy; Z90.710 Acquired absence of both cervix and uterus; Z74.01 Bed confinement status
CPT/HCPCS: 36415; 70450; 71045; 80048; 80053; 81003; 81015; 83605; 85025; 85027; 87040; 87077; 87086; 87186; 94760; 96365; 96375; 96376; C9113; G0378; J0696; J3490